=== PATIENT | male | born 1940 | race Caucasian/White ===

== ENCOUNTER 2020-12-03 15:56 | Emergency (ER) | payer MEDICARE | END 2020-12-03 18:57 | disposition home or self-care (01) | LOC: ER1 15:56 | DX: M19.90 Unspecified osteoarthritis, unspecified site (principal); Z90.49 Acquired absence of other specified parts of digestive tract | CPT/HCPCS: 72100; 72170; 73552; 99283; J2060 ==

== ENCOUNTER → 2020-12-18 | Outpatient (CLI) | payer MEDICARE | LOC: KOH-I 09:29 | DX: M25.552 Pain in left hip (principal); M25.551 Pain in right hip; N40.0 Benign prostatic hyperplasia without lower urinary tract symptoms; M16.12 Unilateral primary osteoarthritis, left hip | CPT/HCPCS: 73721 ==